=== PATIENT | male | born 1960 | race Caucasian/White ===

== ENCOUNTER 2020-12-04 11:15 | Outpatient (CLI) | payer BC, SELFPAY | END 2020-12-04 11:16 | disposition home or self-care (01) | LOC: ANHCOVIDVC 11:15 | PROVIDERS: PCP Internal Medicine | DX: Z23 Encounter for immunization (principal) | CPT/HCPCS: 0001A; 91300 ==

== ENCOUNTER 2020-12-25 11:20 | Outpatient (CLI) | payer BC, SELFPAY | END 2020-12-25 11:21 | disposition home or self-care (01) | LOC: ANHCOVIDVC 11:20 | PROVIDERS: PCP Internal Medicine; Visit Provider Internal Medicine | DX: Z23 Encounter for immunization (principal) | CPT/HCPCS: 0002A; 91300 ==